=== PATIENT | female | born 1985 | race Hispanic/Latino ===

== ENCOUNTER 2017-06-29 11:23 | Emergency (ER) | payer SELFPAY ==
[2017-06-29 11:37] VITALS: BMI 29.2
[2017-06-29 11:43] VITALS: BP 127/83; PULSE 105; RESP 18; TEMP 98.4; O2SAT 97
[2017-06-29] MEDS ORDERED: Lidocaine 1% Inj (20ml) INFIL STA (11:45)
[2017-06-29] MEDS ORDERED: Lidocaine Hydrochloride 5 ML INJ ONE (11:49)
--- NOTE | 2017-06-29 11:54 | C.PDOC ---
History Of Present Illness 31 y/o female presents to the ER for evaluation of a laceration to the right medial hand sustained with a piece of a glass at home. Patient states that she received a call that her grandmother and she broke a wine bottle. Patient denies having other complaints at this time. Time Seen by Provider: 06/29/17 11:43 Chief Complaint (Nursing): Abnormal Skin Integrity History Per: Patient History/Exam Limitations: no limitations Onset/Duration Of Symptoms: Days Current Symptoms Are (Timing): Still Present Severity: Moderate Past Medical History Reviewed: Historical Data, Nursing Documentation, Vital Signs Vital Signs: Last Vital Signs Temp 98.4 F 06/29/17 11:37 Pulse 105 H 06/29/17 11:37 Resp 18 06/29/17 11:37 BP 127/83 06/29/17 11:37 Pulse Ox 97 06/29/17 12:57 - Medical History PMH: Anxiety Surgical History: No Surg Hx Family History: States: No Known Family Hx - Social History Hx Alcohol Use: Yes Hx Substance Use: No - Immunization History Hx Influenza Vaccination: Yes (2016) Hx Pneumococcal Vaccination: No Review Of Systems Except As Marked, All Systems Reviewed And Found Negative. Skin: Positive for: Other (laceration to right hand) Physical Exam - Physical Exam Appears: Non-toxic, No Acute Distress Skin: Normal Color, Warm, Dry, Other (3 cm laceration to medial aspect of right palm) Head: Atraumatic, Normacephalic Eye(s): bilateral: Normal Inspection Neck: Supple Chest: Symmetrical Extremity: Normal ROM (normal flexion and extension of fingers of right hand) Neurological/Psych: Oriented x3, Normal Speech ED Course And Treatment O2 Sat by Pulse Oximetry: 97 (RA) Pulse Ox Interpretation: Normal Laceration - Laceration Repair Right Palm- Medial Aspect Wound Length (In cm): 3 cm Description Of Wound: Linear Wound Cleansed With: Betadine, Sterile Saline Anesthesia: Lidocaine 1% Wound Examination: Irrigated With Saline, No FB With Wound Exploration Wound Closure: Reinaldo (5 reinaldo) Wound Complexity: Simple Medical Decision Making Medical Decision Makin cm lac 5 reinaldo Medial R hand Disposition Doctor Will See Patient In The: Office Counseled Patient/Family Regarding: Studies Performed, Diagnosis - Disposition Referrals: [facility] [Outside] [facility] [Outside] [facility] [Outside] Disposition: HOME/ ROUTINE Disposition Time: 11:54 Condition: GOOD Additional Instructions: ice packs as needed keep clean and dry and bandaged for 5 days mild wash with soap and water daily bacitracin ointment, thin smear daily. Staple removal in 7-10 days return to our [facility] or out outpatient [facility] Instructions: Laceration Repair, Wound Care (DC) Forms: [employer] (Danish) - Clinical Impression Clinical Impression: Hand laceration - Scribe Statement The provider has reviewed the documentation as recorded by the Donibestephania Avila Provider Attestation: All medical record entries made by the Donibe were at my direction and personally dictated by me. I have reviewed the chart and agree that the record accurately reflects my personal performance of the history, physical exam, medical decision making, and the department course for this patient. I have also personally directed, reviewed, and agree with the discharge instructions and disposition.
[2017-06-29] MEDS ORDERED: Bacitracin 500 Units/gm Oint Foilpak UD TOP ONE (11:57)
[2017-06-29] MEDS ORDERED: Bacitracin 500 Units/gm Oint Foilpak UD ONE (12:00)
== END 2017-06-29 12:19 | disposition home or self-care (01) ==
LOC: C.ER 11:23
DX: S61.411A Laceration without foreign body of right hand, initial encounter (principal); W25.XXXA Contact with sharp glass, initial encounter; Y92.009 Unspecified place in unspecified non-institutional (private) residence as the place of occurrence of the external cause